=== PATIENT | female | born 1965 | race Caucasian/White ===

== ENCOUNTER 2021-11-18 13:03 | Emergency (ER) | payer OTHER, SELFPAY ==
--- OUTSIDE RECORDS SUMMARY | 2021-11-18 13:06 | XMS REPORT | Continuity of Care Document ---
:1965 Author Organization [facility] t Address [address] [place] [address] Care Team Providers Name Role Phone Eliot Escalera MD Primary Care Physician ELIOT ESCALERA Attending Clinician Unavailable Eliot Escalera MD Attending Clinician SYLVIA Attending Clinician Unavailable [email or web address] Attending Clinician Unavailable Shiloh Boucher Attending Clinician [phone] Doctor Unassigned, Name Attending Clinician Unavailable Mary GUZMAN C Attending Clinician Jann CUEVAS Attending Clinician Zoran GUZMAN Attending Clinician Only, Test Attending Clinician Unavailable [email or web address]_I Admitting Clinician Unavailable Mary GUZMAN C Admitting Clinician Payers Payer Name Policy Type Policy Number Effective Date Expiration Date Kd nicole EDITH () [id number] 2018 00:00:00 Problems Condition Condition Condition Status Onset Resolution Last Treating Co mments Source Name Details Category Date Date Treatment Clinician Date Anxiety Anxiety Disease Active 2014-05 Univers 05-30 ity of 00:00: [place] 00 Medical Branch Bipolar 1 Bipolar 1 Disease Active 2014-05 Uni vers disorder disorder 05-30 ity of 00:00: [place] 00 Medical Branch Gastroesop Gastroesop Disease Active 2014-05 U nivers hageal hageal 05-30 ity of reflux reflux 00:00: [place] disease disease 00 Medical without without Branch esophagiti esophagiti s s Allergies, Adverse Reactions, Alerts Allergy Allergy Status Severity Reaction(s) Onset Inactive Treating Comm ents Source Name Type Date Date Clinician Ester Propensi Active Swelling 2016-05 Dark Univer s Chocolat ty to 06-01 chocolate ity o f e adverse 00:00: also [place] reaction 00 Medical s Branch WHITE Food Active Swelling 2016-05 Univers CHOCOLAT 06-01 ity of E 00:00: [place] 00 [facility] Social History Social Habit Start Date Stop Date Quantity Comments Source History of tobacco Cigarette Smoker University [facility] History SDOH University o f Alcohol Frequency [facility] Branch History SDOH University o f Alcohol Std Drinks [facility] History SDAR University o f Alcohol Binge [facility] Branch Exposure to 2021-11-04 2021-11-14 Not sure [facility] SARS-CoV-2 (event) 00:00:00 14:14:00 [facility] Alcohol intake 2019-10-13 2019-10-13 .14 /d University of 00:00:00 00:00:00 [facility] Tobacco use and 2015-03-30 2015-03-30 Never used Universit y of exposure 00:00:00 00:00:00 [facility] Cigarettes smoked 2015-03-30 2015-03-30 Univers ity of current (pack per 00:00:00 00:00:00 [facility] ) - Reported Branch Cigarette 2015-03-30 2015-03-30 University of pack-years 00:00:00 00:00:00 [facility] Alcohol Comment 2015-03-30 2015-03-30 rarely Universit y of 00:00:00 00:00:00 [facility] Sex Ass[birth year] Universit y of 00:00:00 00:00:00 [facility] Smoking Status Start Date Stop Date Source Current every day smoker 2015-03-30 00:00:00 Uni versity [facility] [place] [facility] Medications Ordered Filled Start Stop Current Ordering Indication Dosage Frequency Signature Comments Components Source Medication Medication Date Date Medication? Clinician (SIG) Name Name ALPRAZolam Yes [id number] 1mg Take 1 U nivers 1 mg tablet 6-24 tablet by ity of 00:00: mouth 3 [place] 00 (three) Medical times Branch daily. BUDESONIDE- Yes [id number] TAKE 1 Univers FORMOTEROL 3-04 PUFF BY ity of 160-4.5 00:00: MOUTH [place] mcg/actuati 00 TWICE A Medic al on inhaler DAY Branch BUDESONIDE- Yes [id number] TAKE 1 Univers FORMOTEROL 3-04 PUFF BY ity of 160-4.5 00:00: MOUTH [place] mcg/actuati 00 TWICE A Medic al on inhaler DAY Branch BUDESONIDE- Yes [id number] TAKE 1 Univers FORMOTEROL 3-04 PUFF BY ity of 160-4.5 00:00: MOUTH [place] mcg/actuati 00 TWICE A Medic al on inhaler DAY Branch BUDESONIDE- Yes [id number] INHALE 1 Univers FORMOTEROL 1-04 PUFF BY ity of 160-4.5 00:00: MOUTH [place] mcg/actuati 00 TWICE A Medic al on inhaler DAY Branch ALPRAZOLAM 2020-05 Yes [id number] TAKE 1 U nivers 1 mg tablet 2-20 TABLET BY ity of 00:00: MOUTH [place] 00 THREE Medical TIMES A Branch DAY ALPRAZOLAM 2020-05 Yes [id number] TAKE 1 U nivers 1 mg tablet 2-20 TABLET BY ity of 00:00: MOUTH [place] 00 THREE Medical TIMES A Branch DAY ALPRAZOLAM 2020-05 Yes [id number] TAKE 1 U nivers 1 mg tablet 2-20 TABLET BY ity of 00:00: MOUTH [place] 00 THREE Medical TIMES A Branch DAY ALPRAZOLAM 2020-05 Yes [id number] TAKE 1 U nivers 1 mg tablet 2-20 TABLET BY ity of 00:00: MOUTH [place] 00 THREE Medical TIMES A Branch DAY ALPRAZOLAM 2020-05 No [id number] TAKE 1 Univers 1 mg tablet 2-20 06-24 TABLET BY it y of 00:00: 00:00 MOUTH [place] 00 :00 THREE Medical TIMES A Branch DAY budesonide- 2020-05 Yes [id number] 1{puff} Inhale 1 Univers formoteroL 2-08 Puff 2 ity of 160-4.5 00:00: (two) [place] mcg/actuati 00 times Medical on inhaler daily. [place] budesonide- 2020-05 Yes [id number] 1{puff} Inhale 1 Univers formoteroL 2-08 Puff 2 ity of 160-4.5 00:00: (two) [place] mcg/actuati 00 times Medical on inhaler daily. [place] budesonide- 2020-05 Yes [id number] 1{puff} Inhale 1 Univers formoteroL 2-08 Puff 2 ity of 160-4.5 00:00: (two) [place] mcg/actuati 00 times Medical on inhaler daily. [place] budesonide- 2020-05- No [id number] 1{puff} Inhale 1 Univers formoteroL 2-08 01-04 Puff 2 ity of 160-4.5 00:00: 00:00 (two) [place] mcg/actuati 00 :00 times Medical on inhaler daily. [place] cefUROXime 2020-05- No [id number] 500mg Take 1 Univers 500 mg - 12-08 tablet by ity of tablet 00:00: 00:00 mouth 2 [place] 00 :00 (two) Medical times [place] daily. cefUROXime 2020-05- No [id number] 500mg Take 1 Univers 500 mg 1-12 12-08 tablet by ity of tablet 00:00: 00:00 mouth 2 [place] 00 :00 (two) Medical times [place] daily. carBAMazepi 2020-0 Yes Univer s ne 200 mg 9-24 ity of tablet 00:00: [place] [facility] carBAMazepi 2020-0 Yes Univer s ne 200 mg 9-24 ity of tablet 00:00: [place] [facility] carBAMazepi 2020-0 Yes Univer s ne 200 mg 9-24 ity of tablet 00:00: [place] [facility] carBAMazepi 2020-0 Yes Univer s ne 200 mg 9-24 ity of tablet 00:00: [address] carBAMazepi 2020-0 Yes Univer s ne 200 mg 9-24 ity of tablet 00:00: [place] 00 Medical Branch carBAMazepi Yes Univer s ne 200 mg 9-24 ity of tablet 00:00: Medical Branch carBAMazepi Yes Univer s ne 200 mg 9-24 ity of tablet 00:00: Medical Branch ALPRAZolam 2020- Yes [id number] 1mg Take 1 U nivers 1 mg tablet 6-09 tablet by ity of 00:00: mouth 3 [place] 00 (three) Medical times Branch daily. ALPRAZolam Yes [id number] 1mg Take 1 U nivers 1 mg tablet 6-09 tablet by ity of 00:00: mouth 3 [place] 00 (three) Medical times Branch daily. ALPRAZolam 2020- No [id number] 1mg Take 1 Univers 1 mg tablet 6-20 tablet by it y of 00:00: 00:00 mouth 3 [place] 00 :00 (three) Medical times [place] daily. Vital Signs Vital Name Observation Time Observation Value Comments Source Systolic blood 2021-05-01 19:14:00 127 mm[Hg] [facility] Diastolic blood 2021-05-01 19:14:00 93 mm[Hg] [facility] 2021-05-01 19:13:00 111 /min General acute hospital Body height 2021-05-01 19:13:00 170.2 cm General acute hospital Body weight 2021-05-01 19:13:00 70.761 kg [facility] acute hospital BMI 2021-05-01 19:13:00 24.43 kg/m2 General acute hospital Procedures This patient has no known procedures. Encounters Start End Encounter Admission Attending Care Care Encounter Source Date/Time Date/Time Type Type Clinicians Facility Department ID 2021-11-26 2021-11-26 Outpatient Caitlyn ESCALERA [facility] [id number] Univers 16:30:00 16:30:00 PHOEBE [id number] [facility] 2021-11-26 2021-11-26 Outpatient Caitlyn ESCALERA [facility] [id number] Univers 16:30:00 16:30:00 PHEOBE [facility] 2021-11-14 2021-11-14 [facility] [id number] Univers 00:00:00 00:00:00 [facility] [id number] it y of [place] [id number] Vj as UMESH?BLEA [phone] [address] MEDICAL OFFICE [facility] 2021-11-07 2021-11-07 [facility] [id number] Univers 00:00:00 00:00:00 [facility] [id number] it y of [place] [id number] Vj as UMESH?BLEA [phone] [address] OFFICE [facility] 2021-11-05 2021-11-05 [facility] [id number] Univers 00:00:00 00:00:00 [facility] [id number] it y of [place] [id number] Vj as UMESH?BLEA [phone] [address] OFFICE [facility] 2021-07-08 2021-07-08 Outpatient R SYLVIA, [facility] [id number] Univers 14:20:00 14:20:00 GISEL [id number] [facility] 2021-06-17 2021-06-17 Outpatient R SYLVIA, [facility] [id number] Univers 15:20:00 15:20:00 GSIEL [facility] 2021-06-17 2021-06-17 Outpatient R SYLVIA, [facility] [id number] Univers 15:20:00 15:20:00 GISEL [id number] [facility] 2021-06-11 2021-06-11 Outpatient GC_TNC_Cher PRIV PRIV [id number] [facility] 03:11:00 03:11:00 ches_I [id number] Medica l 2021-05-28 2021-05-28 [facility] [id number] Univers 00:00:00 00:00:00 [facility] [id number] it y of [place] [id number] Vj as UMESH?BLEA [phone] [facility] [address] OFFICE [facility] 2021-05-11 2021-05-11 [facility] [id number] Univers 00:00:00 00:00:00 [facility] [id number] it y of [place] [id number] Vj as PROFESSIO [phone] [address] 2021-05-02 2021-05-02 Outpatient GC_TNC_Cher PRIV PRIV [id number] [facility] 03:31:00 03:31:00 ches_I [id number] Medica l 2021-05-02 2021-05-02 Outpatient Cherches, PRIV PRIV [id number] 00:00:00 00:00:00 Mustapha Matamoros [id number] 2021-05-01 2021-05-01 Outpatient [facility] [id number] Univers 13:00:00 13:22:57 PHOEBE wu [facility] 2021-05-01 2021-05-01 Office [facility] [id number] [facility] 13:05:24 13:20:24 Visit [facility] [id number] it y of [place] [id number] Vj as UMESH?BLEA [phone] [address] OFFICE [facility] 2021-05-01 2021-05-01 Outpatient GC_TNC_Cher PRIV PRIV [id number] [facility] 12:33:00 12:33:00 ches_I [id number] Medica l 2020-03-29 2020-03-29 Telemedici [facility] 1.2.840.114 [id number] 07:39:59 07:54:59 ne Visit [facility] [id number] [place] [id number] Professio [phone] [address] 2020-03-01 2020-03-01 [facility] 1.2.840.114 [id number] 00:00:00 00:00:00 Phoebe Holguin [id number] [place] [id number] Professio [phone] [place] [address] Office Building [facility] 2019-11-09 2019-11-09 Telephone [facility] 1.2.840.114 [id number] 00:00:00 00:00:00 Phoebe Juarez [id number] Edyessica [place]br[place] [id number] Professio [phone] [address] 2019-11-08 2019-11-08 Orders Doctor JOÃO 1.2.840.114 [id number] 00:00:00 00:00:00 Only Unassigned, EMIR [id number] [facility] 4.2.7.2.686 [id number] 2019-11-01 2019-11-01 Telemedici [facility] 1.2.840.114 [id number] 09:36:47 09:51:47 ne Visit Phoebe Larry [id number] Edyessica [place] [id number] Professio [phone] [address] 2019-10-12 2019-10-12 [facility] 1.2.840.114 [id number] 07:19:39 09:33:00 Penny Agarwal [id number] [place] [id number] Surgical [phone] [place] 071 2019-10-12 2019-10-12 Anesthesia Elias Forte [facility] 1.2.8 [id number] 08:22:00 08:53:00 Daren Meehan [id number] [place] [id number] Surgical [phone] [place] 020 2019-10-11 2019-10-11 Laboratory Only, [facility] 1.2.840.114 [id number] 13:49:30 14:04:30 Only Test Larry [id number] [place] 4.2.7.2.686 Professio [phone] [facility] 353 [facility] 2019-10-06 2019-10-06 Telephone [facility] 1.2.840.114 [id number] 00:00:00 00:00:00 Phoebe Juarez [id number] [facility] [id number] Professio [phone] [address] 2019-10-04 2019-10-04 Orders Doctor JOÃO 1.2.840.114 [id number] 00:00:00 00:00:00 Only Unassigned, EMIR [id number] [facility] 4.2.7.2.686 [id number] 2019-09-23 2019-09-23 Refill [facility] 1.2.840.114 [id number] 00:00:00 00:00:00 Phoebe Holguin [id number] Edyessica Juarez [id number] Professio [phone] [place] [address] Office Building [facility] 2019-09-15 2019-09-15 [facility] 1.2.840.114 [id number] 14:38:00 23:59:00 Penny Agarwal [id number] [place] 4.2.7.2.686 [place] [id number] [id number] 2019-09-15 2019-09-15 Orders Doctor JOÃO 1.2.840.114 [id number] 00:00:00 00:00:00 Only UnassignedEMIR [id number] [place] 4.2.7.2.686 [id number] 2019-09-15 2019-09-15 Telephone [facility] 1.2.840.114 [id number] 00:00:00 00:00:00 Phoebe Juarez [id number] [place] [id number] Professio [phone] [address] 2019-08-22 2019-08-22 Telemedici [facility] 1.2.840.114 [id number] 08:13:06 08:28:06 ne Visit Phoebe Juarez [id number] [place] [id number] Professio [phone] nal [facility] Building 2019-07-18 2019-07-18 Office VALENTE Escalera 1.2.840.114 [id number] 13:01:39 13:38:07 Visit [facility] [id number] yessica [place] [id number] Professio [phone] [place] [address] Office [address] One Results This patient has no known results.
--- NOTE | 2021-11-18 13:43 | RAD REPORT ---
EXAM DESCRIPTION: Ricky Single View11/18/2021 1:33 pm CLINICAL HISTORY: Chest pain COMPARISON: 2012 FINDINGS: Mild chronic nodularity right upper lobe. The lungs appear clear of acute infiltrate. The heart is normal size IMPRESSION: No acute abnormalities displayed
[2021-11-18 15:36] LABS: Troponin High Sensitivity 3.7 pg/mL (<58.9)
[2021-11-18] MEDS ORDERED: LORAZEPAM 1 MG TABLET ONE (16:17)
[2021-11-18] MEDS ORDERED: DIAZEPAM 2 MG TABLET ONE (16:20)
--- NOTE | 2021-11-18 16:53 | RAD REPORT ---
EXAM DESCRIPTION: CT - Chest For Pe Angio - 11/18/2021 4:35 pm CLINICAL HISTORY: chest pain, elevated d-dimer COMPARISON: CTANGIO CHEST FOR PE dated 02/26/2013 TECHNIQUE: Dynamically enhanced 3 mm thick images of the chest were obtained during administration o f approximately 150mL Isovue 370 IV contrast. Coronal and oblique MIP reconstruction images were gene rated and reviewed. Exam utilizes a protocol to evaluate the pulmonary arterial tree. All CT scans are performed using dose optimization technique as appropriate and may include automated exposure control or mA/KV adjustment according to patient size. FINDINGS: No pulmonary emboli are identified. The aorta as imaged shows no acute or suspicious finding. No pericardial thickening or effusion. No infiltrate or mass in the lung parenchyma. No pleural effusion or pleural thickening. No mediastinal or hilar suspicious masses. No chest wall masses or abnormal axillary lymphadenopathy. IMPRESSION: No pulmonary emboli identified. No other significant or suspicious findings.
--- NOTE | 2021-11-18 17:04 | ER ---
Nurse's Notes [facility] Name: Tomas Henderson Age: 56 yrs Sex: Female : 1965 Arrival Date: 11/18/2021 Time: 13:08 Bed 18 Private MD: Diagnosis: Chest pain, unspecified;Anxiety disorder, unspecified Presentation: 11/18 13:09 Chief complaint: EMS states: toned out for high BP, pt having anxiety attack with chest iw pain, has hx of anxiety, takes two different meds for it, everything started 3 months ago. Coronavirus screen: At this time, the client does not indicate any symptoms associated with coronavirus-19. Ebola Screen: Patient negative for fever greater than or equal to 101.5 degrees Fahrenheit, and additional compatible Ebola Virus Disease symptoms Patient denies exposure to infectious person. Patient denies travel to an Ebola-affected area in the 21 days before illness onset. No symptoms or risks identified at this time. Initial Sepsis Screen: Does the patient meet any 2 criteria? No. Patient's initial sepsis screen is negative. Does the patient have a suspected source of infection? No. Patient's initial sepsis screen is negative. Risk Assessment: Do you want to hurt yourself or someone else? Patient reports no desire to harm self or others. Onset of symptoms was November 18, 2021. 13:09 Method Of Arrival: EMS: [facility] 13:09 Acuity: JOHN 3 iw Triage Assessment: 16:17 General: Appears in no apparent distress. Behavior is calm, cooperative. Pain: jg9 Complains of pain in chest Pain currently is 0 out of 10 on a pain scale. at worst was 10 out of 10 on a pain scale. Is intermittent. Cardiovascular: Reports chest pain, diaphoresis, lightheadedness, nausea, shortness of breath. Respiratory: No deficits noted. Reports shortness of breath with chest pain GI: No deficits noted. : No deficits noted. Derm: No deficits noted. Musculoskeletal: No deficits noted. CASE MGR: 16:10 LMP N/A - Post-menopause jg9 Historical: - Allergies: 13:11 No Known Allergies; iw - Home Meds: 13:11 Clonazepam Oral [Active]; Alprazolam Oral [Active]; iw - PMHx: 16:29 Anxiety; jg9 - Immunization history:: Adult Immunizations up to date. - Family history:: not pertinent. - Social history:: Smoking status: Patient reports the use of cigarette tobacco products, smokes one-half pack cigarettes per day. - Hospitalizations: : No recent hospitalization is reported. Screenin:17 Abuse screen: Denies threats or abuse. Denies injuries from another. Nutritional jg9 screening: No deficits noted. Tuberculosis screening: No symptoms or risk factors identified. Fall Risk None identified. Assessment: 16:29 Pain: Pain does not radiate. jg9 17:00 Reassessment: Patient states feeling better. Patient states symptoms have improved. jg9 Pain: Pain began 1 day ago. Vital Signs: 13:11 BP 160 / 90; Pulse 115; Resp 18; Pulse Ox 96% on R/A; iw 16:10 BP 145 / 73; Pulse 74; Resp 13 S; Pulse Ox 95% on R/A; Pain 0/10; jg9 17:15 BP 136 / 81; Pulse 68; Resp 17 S; Pulse Ox 98% on R/A; jg9 ED Course: 13:08 Patient arrived in ED. iw 13:10 Triage completed. iw 13:11 Arm band placed on. iw 13:15 Bert Anthony MD is Attending Physician. rn 13:29 XRAY Chest (1 view) In Process Unspecified. EDMS 15:28 EKG done, by ED staff, reviewed by Bert Anthony MD. oj 16:09 Dipika Correa, RN is Primary Nurse. jg9 16:29 Patient has correct armband on for positive identification. Bed in low position. Call jg9 light in reach. Side rails up X 1. Client placed on continuous cardiac and pulse oximetry monitoring. NIBP monitoring applied. Client placed on continuous cardiac and pulse oximetry monitoring. NIBP monitoring applied. 16:29 Patient maintains SpO2 saturation greater than 95% on room air. jg9 16:37 CT Chest For PE Angio In Process Unspecified. EDMS 17:18 No provider procedures requiring assistance completed. jg9 17:19 IV discontinued. jg9 Administered Medications: 16:16 Drug: Valium (diazepam) 2 mg {Note: RASS-0.} Route: PO; jg9 17:00 Follow up: Response: No adverse reaction; Anxiety decreased jg9 Medication: 16:29 VIS not applicable for this client. jg9 Outcome: 17:03 Discharge ordered by . rn 17:18 Discharged to home ambulatory. jg9 17:18 Condition: improved 17:18 Discharge instructions given to patient, Instructed on discharge instructions, follow up and referral plans. Demonstrated understanding of instructions, follow-up care. 17:32 Patient left the ED. jg9 Signatures: Dispatcher [employer] EDMS Puja Loera RN RN iw Nieto, Roman, MD MD rn Gilmore, Jennifer, RN RN jgAnalilia Cruz Corrections: (The following items were deleted from the chart) 13:10 13:09 Chief complaint: EMS states: toned out for high BP, pt having anxiety attack with iw chest pain, has hx of anxiety, takes two different meds for it iw
--- NOTE | 2021-11-18 17:04 | EDPHYS ---
Physician Documentation [facility] Name: Tomas Henderson Age: 56 yrs Sex: Female : 1965 Arrival Date: 11/18/2021 Time: 13:08 Bed 18 Private MD: ED Physician Bert Anthony HPI: 11/18 13:23 This 56 yrs old Female presents to ER via EMS with complaints of Anxiety, Chest Pain. rn 13:23 The patient or guardian reports chest pain that is located primarily in the chest rn diffusely. Onset: this morning. The pain does not radiate. Associated signs and symptoms: Pertinent negatives: abdominal pain, diaphoresis, shortness of breath, syncope, vomiting. The chest pain is described as aching, sharp. Duration: The patient or guardian reports multiple episodes, that are intermittent. Modifying factors: The symptoms are alleviated by nothing. the symptoms are aggravated by nothing. Severity of pain: At its worst the pain was mild in the emergency department the pain is unchanged. The patient has not experienced similar symptoms in the past. The patient has not recently seen a physician. Pt reports chest pain, began this AM, sharp and achy at the same time, intermittent, non-radiating. Feels very anxious, has bad anxiety and hasn't left her home in "long time" because of this. Daughter talked her into coming for evaluation today. Patient states felt different than her anxiety so listened. . 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 - Family history:: not pertinent. - Social history:: Smoking status: Patient reports the use of cigarette tobacco products, smokes one-half pack cigarettes per day. - Hospitalizations: : No recent hospitalization is reported. ROS: 13:23 Constitutional: Negative for fever, chills, and weight loss, Eyes: Negative for injury, rn pain, redness, and discharge, Neck: Negative for injury, pain, and swelling, Cardiovascular: Negative for palpitations, and edema, Respiratory: Negative for shortness of breath, cough, wheezing, and pleuritic chest pain, Abdomen/GI: Negative for abdominal pain, nausea, vomiting, diarrhea, and constipation, Back: Negative for injury and pain, MS/Extremity: Negative for injury and deformity, Skin: Negative for injury, rash, and discoloration, Neuro: Negative for headache, weakness, numbness, tingling, and seizure. Exam: 13:23 Constitutional: This is a well developed, well nourished patient who is awake, alert, rn crying and anxious, asking EMS to get her off stretched so she can leave because of her anxiety. Head/Face: Normocephalic, atraumatic. Eyes: Periorbital areas with no swelling, redness, or edema. Cardiovascular: Tachycardic, regular. No pulse deficits. Respiratory: Mild tachypnea, no retractions Abdomen/GI: Soft, non-tender Skin: Warm, dry MS/ Extremity: Pulses equal, no cyanosis. Neuro: Awake and alert, GCS 15 16:28 ECG was reviewed by the Attending Physician. rn Vital Signs: 13:11 BP 160 / 90; Pulse 115; Resp 18; Pulse Ox 96% on R/A; iw 16:10 BP 145 / 73; Pulse 74; Resp 13 S; Pulse Ox 95% on R/A; Pain 0/10; jg9 17:15 BP 136 / 81; Pulse 68; Resp 17 S; Pulse Ox 98% on R/A; jg9 MDM: 13:15 Patient medically screened. rn 17:01 Differential diagnosis: acute myocardial infarction, acute pericarditis, anxiety, rn coronary artery disease chest wall pain, costochondritis, esophagitis, gastritis, gastroesophageal reflux disease (GERD), pleurisy, pneumothorax, pulmonary embolus. Data reviewed: vital signs, nurses notes, lab test result(s), EKG, radiologic studies, CT scan, plain films, and as a result, I will discharge patient. Counseling: I had a detailed discussion with the patient and/or guardian regarding: the historical points, exam findings, and any diagnostic results supporting the discharge/admit diagnosis, lab results, radiology results, the need for outpatient follow up, to return to the emergency department if symptoms worsen or persist or if there are any questions or concerns that arise at home. Response to treatment: the patient's symptoms have markedly improved after treatment, and as a result, I will discharge patient. Special discussion: I discussed with the patient/guardian in detail that at this point there is no indication for admission to the hospital. It is understood, however, that if the symptoms persist or worsen the patient needs to return immediately for re-evaluation. Based on the history and exam findings, there is no indication for further emergent testing or inpatient evaluation. 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 I discussed with the patient/guardian the need to see the primary care provider for further evaluation of the symptoms. 11/18 13:16 Order name: Basic Metabolic Panel; Complete Time: 16:11/18 13:16 Order name: D-Dimer; Complete Time: :11/18 13:16 Order name: NT PRO-BNP; Complete Time: :11/18 13:16 Order name: Troponin HS; Complete Time: :11/18 13:16 Order name: XRAY Chest (1 view); Complete Time: 15:11/18 13:16 Order name: EKG; Complete Time: 13:17 11/18 13:16 Order name: Cardiac monitoring; Complete Time: 16:11/18 13:16 Order name: EKG - Nurse/Tech; Complete Time: 16:11/18 13:16 Order name: IV Saline Lock; Complete Time: 16:11/18 13:16 Order name: Labs collected and sent; Complete Time: 16:10 11/18 13:16 Order name: O2 Per Protocol; Complete Time: 17:19 11/18 16:01 Order name: CT Chest For PE Angio; Complete Time: 16:58 11/18 13:16 Order name: O2 Sat Monitoring; Complete Time: 16: rn EC:28 Rate is 68 beats/min. Rhythm is regular. QRS [place] is Normal. CT interval is normal. QRS rn interval is normal. QT interval is normal. No Q waves. T waves are Normal. No ST changes noted. Clinical impression: Normal ECG. Interpreted by me. Reviewed by me. Administered Medications: 16:16 Drug: Valium (diazepam) 2 mg {Note: RASS-0.} Route: PO; jg9 17:00 Follow up: Response: No adverse reaction; Anxiety decreased jg9 Disposition Summary: 11/18/21 17:03 Discharge Ordered Location: Home rn Problem: new rn Symptoms: have improved rn Condition: Stable rn Diagnosis - Chest pain, unspecified rn - Anxiety disorder, unspecified rn Followup: rn - With: Private Physician - When: As needed - Reason: Recheck today's complaints, Re-evaluation by your physician Discharge Instructions: - Discharge Summary Sheet rn - Nonspecific Chest Pain, Adult rn - Pain Without a Known Cause rn - Generalized Anxiety Disorder, Adult rn Forms: - Medication Reconciliation Form rn - Thank You Letter rn - Antibiotic inspector returned materials - Prescription Opioid Use rn Signatures: Dispatcher [employer] Puja Maradiaga RN RN Bert Martini MD MD rn Gilmore, Jennifer, RN RN jg9
[2021-11-18 17:47] VITALS: BP 136/81; O2SAT 98
--- NOTE | 2021-11-19 08:54 | EKG ---
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
== END 2021-11-18 17:32 | disposition home or self-care (01) ==
LOC: ER 13:03
DX: R07.9 Chest pain, unspecified (principal); F41.9 Anxiety disorder, unspecified; F17.210 Nicotine dependence, cigarettes, uncomplicated
CPT/HCPCS: 36415; 71045; 71275; 80048; 83880; 84484; 85379; 93005; 99284; Q9967